=== PATIENT | female | born 1990 | race African-American/Black ===

== ENCOUNTER 2017-07-17 00:59 | Emergency (ER) | payer OTHER ==
[~2017-07-17] VITALS: Ht 167.6 cm; Wt 127.0 kg
[2017-07-17] MEDS ORDERED: LISINOPRIL10 MG PO (01:17)
[2017-07-17] MEDS ORDERED: METFORMIN HCL500 MG PO (01:17)
[2017-07-17] MEDS ORDERED: DIFLUCAN200 MG PO (01:17)
[2017-07-17] MEDS ORDERED: ERYTHROMYCIN E3.5 G3 OPHTHALMIC (01:18)
[2017-07-17] MEDS ORDERED: TRAMADOL 50 MG50 MG PO (02:53)
[2017-07-17] MEDS ORDERED: CLEOCIN HCL150 MG PO (02:53)
[2017-07-17 03:01] VITALS: BP 143/94
[2017-07-17] MEDS ORDERED: PREDNISONE 20 M20 MG PO (03:10)
== END 2017-07-17 03:28 | disposition home or self-care (01) ==
LOC: ER 00:59
DX: H00.011 Hordeolum externum right upper eyelid (principal); H00.012 Hordeolum externum right lower eyelid; H00.014 Hordeolum externum left upper eyelid